=== PATIENT | female | born 1995 | race African-American/Black ===

== ENCOUNTER 2018-03-04 16:33 | Emergency (ER) | payer OTHER ==
[~2018-03-04] VITALS: Ht 157.5 cm; Wt 63.5 kg
[2018-03-04 16:41] VITALS: Ht 157.5 cm; Wt 63.5 kg
[2018-03-04 20:27] VITALS: BP 117/92
== END 2018-03-04 20:27 | disposition home or self-care (01) ==
LOC: ED 16:33
DX: R10.32 Left lower quadrant pain (principal); R11.2 Nausea with vomiting, unspecified; R19.7 Diarrhea, unspecified; F41.9 Anxiety disorder, unspecified; J45.909 Unspecified asthma, uncomplicated
CPT/HCPCS: J1885; J2270; Q0162

== ENCOUNTER 2019-01-20 12:42 | Emergency (ER) | payer OTHER ==
[~2019-01-20] VITALS: Ht 160 cm; Wt 57.2 kg
[2019-01-20 12:47] VITALS: Ht 160 cm; Wt 57.2 kg
[2019-01-20 14:14] VITALS: BP 117/76
== END 2019-01-20 14:14 | disposition home or self-care (01) ==
LOC: ED 12:42
DX: R10.30 Lower abdominal pain, unspecified (principal); F41.9 Anxiety disorder, unspecified; R10.2 Pelvic and perineal pain; J45.909 Unspecified asthma, uncomplicated; N83.209 Unspecified ovarian cyst, unspecified side
CPT/HCPCS: J1885